=== PATIENT | female | born 1955 | race Two or more races ===

== ENCOUNTER 2017-09-19 05:31 | Inpatient (IN) | payer MEDICARE, MEDICAID ==
[~2017-09-19] VITALS: Ht 167.6 cm; Wt 74.8 kg
[2017-09-19] MEDS ORDERED: CEFAZOLIN SODIUM/DEXTROSE,ISO 50 ML IV ONE (06:25)
[2017-09-19] MEDS ORDERED: BUPIVACAINE 0.5 % PF 150 MG/30 ML VIAL ONE (06:36)
[2017-09-19] MEDS ORDERED: KETOROLAC TROMETHAMINE INJ 30 MG/ML VIAL ONE (06:36)
[2017-09-19] MEDS ORDERED: BACITRACIN 50000 UNITS/VIAL ONE (06:37)
[2017-09-19] MEDS ORDERED: oxyCODONE HCL SR 10MG TAB.SR.12H PO ONE (06:48)
[2017-09-19] MEDS ORDERED: CELECOXIB 100 MG CAPSULE ONE (06:48)
[2017-09-19] MEDS ORDERED: ACETAMINOPHEN 325 MG TABLET ONE (06:49)
[2017-09-19] MEDS ORDERED: HYDROMORPHONE INJ 2 MG/ML DISP.SYRIN ONE (07:06)
[2017-09-19] MEDS ORDERED: ROCURONIUM BROMIDE 50 MG/5 ML ONE (07:06)
[2017-09-19] MEDS ORDERED: TRANEXAMIC ACID 3,000 MG in SODIUM CHLORIDE IRRIG SOLUTION 70 ML IR ONE (07:30)
[2017-09-19] MEDS ORDERED: HYDROMORPHONE 2 MG/1 ML SDV ONE (08:56)
[2017-09-19] MEDS ORDERED: hydrALAZINE HCL IV 20 MG VIAL ONE (09:12)
[2017-09-19] MEDS ORDERED: FENTANYL PF 100MCG/2ML AMPUL ONE (09:24)
[2017-09-19] MEDS ORDERED: HYDROCODONE/APAP 5/325MG 1 EACH TABLET PO PRN ×2 (09:30)
--- NOTE | 2017-09-19 09:40 | NUR ---
MS RN OPENING NOTES RECEIVED PT FROM OR NURSE IN STABLE CONDITION AFTER A RIGHT TOTAL HIP REPLACEMENT PERFORMED BY DR. COWART. PT IS A/O X3. NO SOB OR SIGNS OF DISTRESS NOTED. BREATHING IS EVEN AND UNLABORED. PT IS ON 2L O2 AND SATING WELL AT 96%. VITALS SIGNS STABLE AT THIS TIME. ORDERS ACKNOWLEDGED BY . LR STARTED AND INFUSING @100ML/HR ORDERED. NO REDNESS OR SIGNS OF INFILTRATION NOTED. PT IS TOLERATING INFUSION WELL. SURGICAL DRESSING NOTED ON RIGHT HIP. DRESSING IS DRY, CLEAN, AND INTACT. ORDERED, DRESSING WILL BE CHANGED ON SUNDAY. BED IN LOW LOCKED POSITION, SIDE RAILS UP X2, CALL LIGHT WITHIN REACH. WILL CONTINUE TO MONITOR
[2017-09-19] MEDS ORDERED: DOCUSATE SODIUM 250 MG CAPSULE PO PRN (10:00)
[2017-09-19] MEDS ORDERED: BISACODYL SUPP (10 MG) 10 MG/SUPP.RECT SUPP.RECT RC PRN (10:00)
[2017-09-19] MEDS ORDERED: ZOLPIDEM TARTRATE 5 MG TABLET PO PRN (10:00)
[2017-09-19] MEDS ORDERED: ONDANSETRON HCL/PF 4 MG/2 ML VIAL IVP PRN (10:00)
[2017-09-19] MEDS ORDERED: SENNOSIDES 8.6 MG TABLET PO PRN (10:00)
--- NOTE | 2017-09-19 10:20 | NUR ---
MS RN NOTES DR COLE MADE AWARE THAT PT IS ON THE UNIT
[2017-09-19] MEDS: HYDROMORPHONE INJ 2 MG/ML DISP.SYRIN IV PRN ×2 (10:40→15:11)
[2017-09-19] MEDS: IV LR 1000 ML 1,000 ML IV PRN ×2 (10:41→22:03)
[2017-09-19 14:19] LABS: HEMOGLOBIN 13.2 g/dL (11.5-14.8)
[2017-09-19 14:39] LABS: CALCIUM, SERUM 8.9 mg/dL (8.5-10.1); CREATININE 0.9 mg/dL (0.6-1.3); POTASSIUM 4.6 mmol/L (3.5-5.1)
[2017-09-19] MEDS: ANCEF 1 GM/50 ML D5W IV SCH ×2 (15:10)
[2017-09-19 16:00] VITALS: BP 126/80
[2017-09-19] MEDS ORDERED: MAG HYDROX/AL HYDROX/SIMETH 30 ML UDC PO PRN (17:30)
[2017-09-19] MEDS ORDERED: CLONIDINE HCL 0.1 MG TABLET PO PRN (17:30)
[2017-09-19] MEDS ORDERED: diphenhydrAMINE HCL 25 MG CAPSULE PO PRN (17:30)
[2017-09-19] MEDS ORDERED: MAGNESIUM CITRATE 296 ML BOTTLE PO PRN (17:30)
[2017-09-19] MEDS ORDERED: MAGNESIUM HYDROXIDE 30 ML UDC PO PRN (17:30)
[2017-09-19] MEDS ORDERED: ONDANSETRON HCL/PF 4 MG/2 ML VIAL IV PRN (17:30)
--- NOTE | 2017-09-19 19:21 | NUR ---
MS RN CLOSING NOTES PT REMAINS IN STABLE CONDITION. VITAL SIGNS REMAINED STABLE DURING SHIFT. PT DENIES ANY PAIN AT THIS TIME.. ALL ORDERS CARRIED OUT ACCORDINGLY. ALL DUE MEDS GIVEN. ORTIZ CATHETER REMAINS INTACT AND DRAINING CLEAR BATSHEVA URINE. ABDUCTOR PILLOW REMAINS IN PLACE. SAFETY MEASURES MAINTAINED. WILL ENDORSE TO NIGHTSHIFT NURSE FOR SHUB[place]
--- NOTE | 2017-09-19 19:30 | NUR ---
RN NOTES RECEIVED PT. AWAKE ON BED, A/OX3, S/P RIGHT HIP TOTAL HIP REPLACEMENT, DRESSING ON THE RIGHT HIP DRY AND INTACT, F/C DRAINING BATSHEVA URINE, WITH ABDUCTION PILLOW IN PLACE, CALL LIGHT WITHIN REACH, SIDERAILS UPX2 CONTINUE TO MONITOR
[2017-09-19 20:00] VITALS: BP 139/77
--- NOTE | 2017-09-19 20:16 | NUR ---
PT REQUESTING PAIN MEDICATION FOR A PAIN LEVEL 4/10. WILL ADMINISTER AND CONTINUE TO MONITOR. Addendum: 09/20/17 at 0150 by BINU SIMMONS RN PAIN MEDICATION REQUESTED @ [id number] FOR PAIN LEVEL 9/10.
[2017-09-19] MEDS: oxyCODONE IR immediate release 5 MG CAPSULE PO PRN (21:38)
[2017-09-19] MEDS: PANTOPRAZOLE 40 MG TABLET.DR PO SCH (21:38)
[2017-09-20] MEDS: ANCEF 1 GM/50 ML D5W IV SCH ×2 (00:36)
[2017-09-20] MEDS: RIVAROXABAN 10 MG TABLET PO SCH ×2 (06:15→16:23)
--- NOTE | 2017-09-20 06:45 | NUR ---
RN CLOSING NOTES PT AWAKE AND RESTING IN BED. NO COMPLAINTS OF PAIN OR DISTRESS. PT S/P R TOTAL HIP REPLACEMENT SX SOBECK. NO SIGNIFICANT CHANGES OVERNIGHT. NO COMPLAINTS OF SOB. BREATHING EVEN AND UNLABORED. PT ORTIZ INTACT AND CLEAN, OUTPUT 1100. PT IV LEFT AND RIGHT HAND BOTH PATENT AND INTACT. L HAND IVF LR@100ML/HR, PT TOLERATING WELL. ABDUCTION PILLOW IN PLACE. BED LOW, LOCKED AND 2XSIDE RAILS UP. SAFETY PRECAUTIONS IN PLACE. CALL LIGHT WITHIN REACH. WILL ENDORSE TO THE DAY SHIFT NURSE FOR CONTINUITY OF CARE.
--- NOTE | 2017-09-20 07:20 | NUR ---
MS RN OPENING NOTES RECEIVED PT FROM NIGHTSHIFT IN STABLE CONDITION. PT IS A/O X3. NO SOB OR SIGNS OF DISTRESS NOTED. BREATHING IS EVEN AND UNLABORED. PT IS ON 2L O2 AND SATING WELL AT 98%. MULTIPLE IVS NOTED ON RIGHT HAND AND LEFT HAND 22G. BOTH IVS ARE PATENT AND INTACT. NO REDNESS OR SIGNS OF INFILTRATION NOTED TO EACH. LR INFUSING @ 100ML/HR IN PT'S LEFT HAND. SURGICAL DRESSING NOTED ON RIGHT HIP. DRESSING IS DRY, CLEAN, AND INTACT AND SCHEDULED TO BE CHANGED BY MD TODAY. BED IN LOW LOCKED POSITION, SIDE RAILS UP X2, CALL LIGHT WITHIN REACH. WILL CONTINUE TO MONITOR
[2017-09-20 08:00] VITALS: BP 117/56
[2017-09-20 08:23] LABS: HEMOGLOBIN 10.8 g/dL (11.5-14.8)
[2017-09-20] MEDS: HYDROMORPHONE INJ 2 MG/ML DISP.SYRIN IV PRN ×2 (08:46→11:56)
[2017-09-20] MEDS: DOCUSATE SODIUM 100 MG CAPSULE PO SCH ×2 (08:47→16:21)
[2017-09-20] MEDS: ACETAMINOPHEN 325 MG TABLET PO PRN ×2 (11:47→23:14)
[2017-09-20] MEDS: IV LR 1000 ML 1,000 ML IV PRN ×2 (11:48→23:03)
--- NOTE | 2017-09-20 12:06 | NUR ---
MS RN NOTES PT HAD A SLIGHT FEVER OF 99.2. PRN TYLENOL WAS GIVEN AND HER TEMP IS NOW 98.1. THE PT ALSO STATES THAT HER HIP FELT LOCKED AFTER COMPLETING A TURN DURING PHYSICAL THERAPY. VINNIE THE GAMES DEALER WAS NOTIFIED BUT NO RESPONSE HE IS BELEIVED TO BE IN THE OPERATING ROOM. PT REMAINS STABLE AT THIS TIME. WILL COTNIUE TO MONITOR RHER PAIN, TEMPERATURE, AND S/S OF POSSIBLE INFECTION.
--- NOTE | 2017-09-20 12:58 | NUR ---
MS RN NOTES PT ASSESSED BY COURY THE BIOSTATISTICS MANAGER. NO XRAYS NEEDED AT THIS TIME PER COURY. LOW GRADE TEMP LIKELY THE RESULT OF PROCEDURE. NO NEW ORDERS AT THIS TIME
--- NOTE | 2017-09-20 13:01 | NUR ---
MS RN NOTES ORTIZ CATHETER SUCCESSFULLY REMOVED PER PROTOCOL. PT WAS ABLE TO VOID 50ML AFTER CATHETER REMOVAL.
[2017-09-20 16:00] VITALS: BP 119/60
[2017-09-20] MEDS: oxyCODONE IR immediate release 5 MG CAPSULE PO PRN (16:21)
--- NOTE | 2017-09-20 16:24 | NUR ---
MS RN NOTES XERALTO IS SCHEDULED FOR QD5PM. PER DR. COWART, THE PT IS TO BEGIN XERALTO 24HRS AFTER HER SURGERY WHICH WAS PERFORMED YESTERDAY MORNING. LEANN FROM PHARMACY WAS CALLED AND GAVE THE OKAY TO ADMINISTER THE PT XERALTO AT THIS TIME. I ALSO BROUGHT IT TO HIS ATTENTION THAT IT WAS ADMINISTERED THIS MORNING BY THE NIGHTSHIFT NURSES AT 06:15. PER LEANN "IT IS OKAY TO GIVE THE DOSE NOW, THEN I WILL D/C IT AND RESCHEDULE IT FOR 1700 STARTING TOMORROW"
--- NOTE | 2017-09-20 18:55 | NUR ---
MS RN CLOSING NOTES PT REMAINS IN STABLE CONDITION. PT DENIES ANY PAIN AT THIS TIME. ALL ORDERS CARRIED OUT ACCORDINGLY. ALL DUE MEDS GIVEN. ABDUCTOR PILLOW REMAINS IN PLACE. SAFETY MEASURES MAINTAINED, BEDSIDE COMMODE BY PT. WILL ENDORSE TO NIGHTSHIFT NURSE FOR [place]UB[place]
--- NOTE | 2017-09-20 19:44 | NUR ---
RN OPENING NOTES PT RESTING IN BED. ALERT AND ORIENTED. NO COMPLAINTS OF PAIN OR DISTRESS. R HAND IV, PATENT AND INTACT. LT HAND IV RUNNING LR @100ML/HR. BEDSIDE COMMODE PRESENT, PT ABLE TO AMBULATE WITH MINIMAL ASSISTANCE. SAFETY PRECAUTIONS IN PLACE. BED IN A LOW, LOCKED POSITION, 2XSIDERAILS UP. CALL LIGHT WITHIN REACH. WILL CONTINUE TO MONITOR.
[2017-09-20 20:00] VITALS: BP 132/63
[2017-09-20] MEDS: PANTOPRAZOLE 40 MG TABLET.DR PO SCH (21:38)
--- NOTE | 2017-09-20 23:15 | NUR ---
PT REQUESTING TYLENOL FOR TEMPERATURE OF 99.0. WILL ADMINISTER PRN PO TYLENOL 650MG. WILL CONTINUE TO MONITOR.
--- NOTE | 2017-09-21 06:47 | NUR ---
RN CLOSING NOTES PT AWAKE AND RESTING IN BED. ALERT AND ORIENTED. NO COMPLAINTS OF PAIN OR DISTRESS. R HAND IV, PATENT AND INTACT. LT HAND IV RUNNING LR @100ML/HR. BEDSIDE COMMODE PRESENT, PT ABLE TO AMBULATE WITH MINIMAL ASSISTANCE. ALL PT NEEDS ADDRESSED AND MET. SAFETY PRECAUTIONS IN PLACE. BED IN A LOW, LOCKED POSITION, 2XSIDERAILS UP. CALL LIGHT WITHIN REACH. WILL ENDORSE TO DAY SHIFT NURSE FOR CONTINUITY OF CARE.
--- NOTE | 2017-09-21 07:25 | NUR ---
RN NOTES PT IS IN BED, RESTING COMFORTABLY, ALERT AND ORIENTED. PT ON RA, RESPIRATIONS ARE EVEN AND UNLABORED. IV ON R HAND INTACT AND IV ON L HAND INTACT AND RUNNING LR @ 100ML/HR. PT HAS NO COMPLAINTS OF PAIN AT THIS TIME. SAFETY MEASURES ARE IN PLACE, CALL LIGHT IS IN REACH. WILL CONTINUE TO MONITOR.
[2017-09-21 08:00] VITALS: BP 146/65
[2017-09-21] MEDS: DOCUSATE SODIUM 100 MG CAPSULE PO SCH ×2 (08:37→16:36)
[2017-09-21] MEDS: IV LR 1000 ML 1,000 ML IV PRN (09:08)
[2017-09-21] MEDS: oxyCODONE IR immediate release 5 MG CAPSULE PO PRN ×2 (10:04→16:37)
[2017-09-21 16:00] VITALS: BP 155/69
[2017-09-21] MEDS ORDERED: RIVAROXABAN 10 MG TABLET PO SCH (17:00)
--- NOTE | 2017-09-21 18:42 | NUR ---
RN NOTES PT IS RESTING IN BED COMFORTABLY. PT ON RA, RESPIRATIONS ARE EVEN AND UNLABORED. IV ON R HAND AND L HAND, RUNNING NS @ 50ML/HR. OXYCODONE LAST GIVEN @ 1640 FOR PAIN, PT STATES IT WAS EFFECTIVE. ALL MEDS WERE GIVEN ORDERED, PT NEEDS MET. PT WAITING FOR PLACEMENT IN ACUTE REHAB CENTER NEAR HER HOME. SAFETY MEASURES ARE IN PLACE, CALL LIGHT IS IN REACH. WILL ENDORSE TO [employer] SUPERVISOR RN FOR CONTINUITY OF CARE.
--- NOTE | 2017-09-21 19:00 | NUR ---
MS RN OPENING NOTES IN BED, RESTING, PT A/O X 4, NO S/S OF DISTRESS NOTED. STABLE CONDITION. BREATHING EVEN AND UNLABORED, SAFETY MEASURES IN PLACE, BED LOCKED AND IN LOWEST POSITION, CALL LIGHT IN REACH. WILL CONTINUE TO MONITOR.
[2017-09-21 20:00] VITALS: BP 146/90
[2017-09-21] MEDS: PANTOPRAZOLE 40 MG TABLET.DR PO SCH (21:30)
[2017-09-22] MEDS: IV LR 1000 ML 1,000 ML IV PRN (02:04)
[2017-09-22 06:22] LABS: BASOPHILS % (AUTO) 0.9 % (0.0-2.0); EOSINOPHILS # (AUTO) 0.1 /CMM (0.0-0.7); EOSINOPHILS % (AUTO) 2.7 % (0.0-6.0); HEMATOCRIT 30 % (33-45); HEMOGLOBIN 10.6 g/dL (11.5-14.8); LYMPHOCYTES # (AUTO) 1.8 /CMM (0.8-4.8); LYMPHOCYTES % (AUTO) 38.1 % (20.0-44.0); MEAN CORPUSCULAR HEMOGLOBIN 33 PG (26.0-33.0); MEAN CORPUSCULAR HGB CONC 35 g/dl (31.0-36.0); MEAN CORPUSCULAR VOLUME 93 fL (82-100); MONOCYTES # (AUTO) 0.4 /CMM (0.1-1.30); MONOCYTES % (AUTO) 9.2 % (2.0-12.0); NEUTROPHILS # (AUTO) 2.3 /CMM (1.8-8.9); NEUTROPHILS % (AUTO) 49.1 % (43.0-81.0); PLATELET COUNT (AUTO) 119 /CMM (150-450); RDW COEFFICIENT OF VARIATION 12.9 (11.5-15.0); RED BLOOD CELL COUNT(AUTO) 3.24 MIL/uL (4.0-5.2); WHITE BLOOD COUNT (AUTO) 4.6 K/uL (4.3-11.0)
[2017-09-22 06:39] LABS: CALCIUM, SERUM 8.5 mg/dL (8.5-10.1); CREATININE 0.7 mg/dL (0.6-1.3); MAGNESIUM 1.7 mg/dL (1.8-2.4); PHOSPHORUS 3.1 mg/dL (2.5-4.9); POTASSIUM 3.9 mmol/L (3.5-5.1)
--- NOTE | 2017-09-22 06:49 | NUR ---
MS RN CLOSING NOTES RESTING IN BED ASLEEP AND EASILY AWAKEN. HEAD OF BED ELEVATED FOR BETTER LUNG EXPANSION, TOLERATING ROOM AIR 02 SAT 99% RESPIRATIONS EVEN AND UNLABORED. IN STABLE CONDITION NO S/S OF ACUTE DISTRESS, NO COMPLAINS OF PAIN AT THIS TIME. NO COMPLAINS OF CHEST PAIN THROUGHOUT THE SHIFT. AFEBRILE, NURSING CARE RENDERED, NEEDS ATTENDED AND ANTICIPATED, KEPT CLEAN AND DRY AND COMFORTABLE. GOOD SKIN CARE PROVIDED. FREQUENT VISUAL CHECK DONE FOR SAFETY EVERY 2 HOURS. SAFE HAZARD FREE ENVIRONMENT PROVIDED. CALL LIGHT WITHIN EASY TO REACH, ON LOW BED AT ALL TIMES TO ENSURE SAFETY, WILL ENDORSE TO THE NEXT SHIFT CONTINUE PLAN OF CARE.
[2017-09-22 07:24] VITALS: BP 156/72
[2017-09-22 08:00] VITALS: BP 143/72
--- NOTE | 2017-09-22 08:09 | NUR ---
MS RN OPENING NOTES RECEIVED PT FROM NIGHTSHIFT IN STABLE CONDITION. PT IS A/O X4. NO SOB OR SIGNS OF DISTRESS NOTED. BREATHING IS EVEN AND UNLABORED. MULTIPLE IVS NOTED ON RIGHT AND LEFT HAND 22G. BOTH IVS ARE PATENT AND INTACT. NO REDNESS OR SIGNS OF INFILTRATION NOTED TO EACH. LR INFUSING @ 100ML/HR IN PT'S LEFT HAND. SURGICAL DRESSING NOTED ON RIGHT HIP. DRESSING IS DRY, CLEAN, AND INTACT. BED IN LOW LOCKED POSITION, SIDE RAILS UP X2, CALL LIGHT WITHIN REACH. WILL CONTINUE TO MONITOR
[2017-09-22] MEDS: DOCUSATE SODIUM 100 MG CAPSULE PO SCH (08:14)
[2017-09-22] MEDS: oxyCODONE IR immediate release 5 MG CAPSULE PO PRN (09:44)
[2017-09-22] MEDS: Magnesium 1GM/D5W 100ML PREMIX 100 ML IV SCH ×2 (09:45→10:52)
[2017-09-22] MEDS ORDERED: OXYC5CAP3 PO (13:26)
[2017-09-22] MEDS ORDERED: RIVA10TA PO (13:26)
[2017-09-22] MEDS ORDERED: DOCU-25 PO (13:26)
[2017-09-22] MEDS ORDERED: SENN8.6T6 PO (13:26)
--- NOTE | 2017-09-22 15:50 | NUR ---
MS FIRST PRESS OPERATOR NOTES PT WAS DISCHARGED FROM UNIT IN STABLE CONDITION. DISCHARGE INSTRUCTIONS WERE GIVEN TO BOTH THE PATIENT AND KOLBY THE RECEIVING NURSE FROM [facility]. PT SIGNED ALL DISCHARGE PAPERWORK INCLUDING BELONGINGS FORM. PT LEFT WITH ALL HER BELONGINGS. IV WAS SUCCESSFULLY REMOVED. SURGICAL DRESSING DRY, CLEAN AND INTACT. PT WA SAFELY TRANSFORMED FROM BED TO GURNEY AND LEFT FACILITY VIS AMBULANCE TRANSPORT. ALL NEEDS WERE MET DURING SHIFT. ALL DUE MEDS GIVEN. WILL ENDORSE TO NIGHTSHIFT NURSE FOR [place]
[2017-09-22 16:00] VITALS: BP 128/45
== END 2017-09-22 15:45 | DRG 470 ==
LOC: DS 05:31 → MED 07:37 → OBSVTOIN 07:37
PROVIDERS: ADMIT Specialist; ATTEND Internal Medicine
PROC: 0SR901Z Replacement of Right Hip Joint with Metal Synthetic Substitute, Open Approach (ICD-10-PCS; principal; 2017-09-19 08:35)
DX: M16.11 Unilateral primary osteoarthritis, right hip (principal); E83.42 Hypomagnesemia; E66.9 Obesity, unspecified; D64.9 Anemia, unspecified; E78.00 Pure hypercholesterolemia, unspecified; Z87.891 Personal history of nicotine dependence; Z68.26 Body mass index [BMI] 26.0-26.9, adult; Z86.19 Personal history of other infectious and parasitic diseases
CPT/HCPCS: 36415; 80048-TC; 83735-TC; 84100-TC; 85025-TC; 85027-TC; 86850-TC; 86921-TC; 87081-TC; 88305-TC; 88311-TC; 97110-TC; 97116-TC; 97530-TC; A4217; A6209; A6402; J0360; J0690; J1100; J1170; J1885; J2405; J2704; J2710; J3010; J3475; J3490; J7060; J7120; Z7610